=== PATIENT | male | born 1950 | race Two or more races ===

== ENCOUNTER 2024-08-01 15:26 | Emergency (ER) | payer OTHER ==
[~2024-08-01] VITALS: Ht 167.6 cm; Wt 77.1 kg
[2024-08-01] MEDS ORDERED: SYNTHROID150 MCG PO (16:00)
[2024-08-01] MEDS ORDERED: ATORVASTATIN CA20 MG PO (16:00)
[2024-08-01] MEDS ORDERED: LISINOPRIL2.5 MG PO (16:00)
[2024-08-01] MEDS ORDERED: 0.9 % SODIUM CHLORIDE 1,000 ML IV STA (16:50)
[2024-08-01 18:11] LABS: INR 1.05; PARTIAL THROMBOPLASTIN TIME 25.4 SECONDS (22.0-34.0); PROTHROMBIN TIME 11.4 SECONDS (9.0-11.5)
[2024-08-01 18:16] LABS: HEMATOCRIT 39.6 % (39.0-48.0); HEMOGLOBIN 13.4 g/dL (13-16.00); MEAN CELL VOLUME 91.4 fL (80.0-100.00); MEAN CORPUSCULAR HGB CONC 33.9 g/dl (32.0-36.0); PLATELET COUNT 167 K/uL (150-450); RED BLOOD COUNT 4.34 M/uL (4.00-6.00); RED CELL DISTRIBUTION WIDTH 14.1 % (11.5-14.5)
[2024-08-01 18:19] LABS: URINE APPEARANCE Clear; URINE BILIRRUBIN Negative (NEGATIVE); URINE BLOOD Negative; URINE COLOR Yellow; URINE GLUCOSE Negative (NEGATIVE); URINE KETONE Negative (NEGATIVE); URINE LEUKOCYTE Negative; URINE NITRATE Negative; URINE PROTEIN Negative (NEGATIVE); URINE UROBILINOGEN 0.2 E.U./dl
[2024-08-01 18:21] LABS: ALBUMIN 3.7 gm/dL (3.4-5.0); BILIRUBIN TOTAL 0.42 mg/dL (0.3-1.2); CALCIUM 8.8 mg/dL (8.5-10.1); CREATININE SERUM 1.31 mg/dL (0.70-1.30); GFR 53.49; GLOBULINA 3.9 G/DL (2.4-3.5); POTASSIUM 4.15 mEq/L (3.5-5.1); TOTAL PROTEIN 7.6 gm/dL (6.4-8.2)
[2024-08-01 18:24] LABS: URINE BACTERIA 8.5 uL (0.0-1933)
[2024-08-01 18:28] LABS: URINE EPITHELIAL CELLS 0.9 uL (0.0-38.8); URINE WBC 0.7 uL (0.0-23.2)
[2024-08-01 18:29] LABS: ERYTHROCYTE SEDIMENTATION RATE 4 mm/hr
[2024-08-01] MEDS ORDERED: CEFAZOLIN SODIUM 1,000 MG VIAL IM STA (19:06)
[2024-08-01] MEDS ORDERED: CEFAZOLIN SODIUM 1,000 MG VIAL ONE (19:17)
== END 2024-08-01 19:26 | disposition home or self-care (01) ==
LOC: ER 15:29
DX: K62.5 Hemorrhage of anus and rectum (principal); R10.9 Unspecified abdominal pain; Z20.822 Contact with and (suspected) exposure to COVID-19
CPT/HCPCS: 36415; 74176; 96365; 96366; 96372; 99284; J0690; J7030